=== PATIENT | female | born 1950 | race African-American/Black ===

== ENCOUNTER 2017-10-28 16:59 | Emergency (ER) | payer OTHER ==
[~2017-10-28] VITALS: Ht 167.6 cm; Wt 95.5 kg
[2017-10-28 17:14] VITALS: BP 203/98; PULSE 63; RESP 20; TEMP 100.2; O2SAT 98
[2017-10-28] MEDS ORDERED: CELE10TA PO (18:09)
[2017-10-28] MEDS ORDERED: ENAL5TAB PO (18:09)
[2017-10-28] MEDS ORDERED: ASPI-516 CHEW (18:09)
[2017-10-28] MEDS ORDERED: METO25TA3 PO (18:09)
[2017-10-28] MEDS ORDERED: HYDR12.57 PO (18:09)
[2017-10-28] MEDS ORDERED: FAMO1TAB30 PO (18:09)
[2017-10-28] MEDS ORDERED: HYDR-3801 PO (18:10)
[2017-10-28] MEDS ORDERED: VITA10002 PO (18:10)
[2017-10-28 18:13] VITALS: BP 185/93; PULSE 52; RESP 22; TEMP 99.2; O2SAT 100
[2017-10-28] MEDS ORDERED: LIPI40TA PO (18:14)
[2017-10-28] MEDS ORDERED: AMLO10 PO (18:14)
--- NOTE | 2017-10-28 19:20 | PD ---
HPI Chief Complaint: Injury Time Seen by Provider: 19:06 Travel History International Travel<30 days: No Contact w/Intl Traveler<30days: No Traveled to known affect area: No History of Present Illness HPI 67-year-old black female presents emergency department we will complaints of pain and swelling to her right index finger after clipping her cuticle 2 days ago. She states that it is extremely painful and swollen. She denies any other injury. No fever chills. No numbness, tingling or weakness. Symptoms are moderate. PFSH Past Medical History Narrative Medical Hypertension Tetanus Vaccination: Unknown Social History Alcohol Use: No Tobacco Use: No Allergies-Medications (Allergen,Severity, Reaction): Coded Allergies: ibuprofen (Verified Allergy, Severe, Nausea/Vomiting, 10/28/17) Reported Meds & Prescriptions Reported Meds & Active Scripts Active Reported Lipitor (Atorvastatin Calcium) 40 Mg Tab Unknown Dose PO DAILY Norvasc (Amlodipine Besylate) 10 Mg Tab 10 Mg PO DAILY Vitamin B-12 (Cyanocobalamin) 1,000 Mcg Tab Unknown Dose PO DAILY Hydralazine (Hydralazine HCl) 100 Mg Tab Unknown Dose PO BID Take with meals Celexa (Citalopram Hydrobromide) 10 Mg Tab Unknown Dose PO DAILY Aspirin 81 Mg Chew 162 Mg CHEW DAILY Famotidine 10 Mg Tab Unknown Dose PO DAILY Hydrochlorothiazide 12.5 Mg Cap Unknown Dose PO DAILY Metoprolol Tartrate 25 Mg Tab Unknown Dose PO BID Enalapril (Enalapril Maleate) 5 Mg Tab Unknown Dose PO DAILY Review of Systems General / Constitutional: No: Fever Eyes: No: Visual changes HENT: No: Headaches Cardiovascular: No: Chest Pain or Discomfort Respiratory: No: Shortness of Breath Gastrointestinal: No: Abdominal Pain Genitourinary: No: Dysuria Musculoskeletal: Positive: Limited ROM, Edema, Pain Skin: Positive Rash Neurologic: No: Weakness Psychiatric: No: Depression Endocrine: No: Polydipsia Hematologic/Lymphatic: No: Easy Bruising Physical Exam Narrative GENERAL: This is a well-nourished, well-developed patient, in no apparent distress. SKIN: No rashes, ecchymoses or lesions. Warm and dry. HEAD: Atraumatic. Normocephalic. EYES: PERRL, EOMI, no discharge or injection. No scleral icterus. EARS: Clear NOSE: Nasal turbinates appear normal. THROAT: Mucosa pink and moist. Airway patent. NECK: Trachea midline. supple, moves head freely. LUNGS: Clear to auscultation. CV: Regular in rhythm. ABDOMEN: Soft nontender. EXT: No clubbing cyanosis. Examination of the right index finger reveals swelling along the lateral aspect of the nailbed. It is tender, warm with mild erythema. There is an obvious paronychia. Data Data Last Documented VS Vital Signs Date Time Temp Pulse Resp B/P (MAP) Pulse Ox O2 Delivery O2 Flow Rate FiO2 10/28/17 18:13 99.2 52 22 185/93 (123) 100 Room Air MDM Medical Decision Making Medical Screen Exam Complete: Yes Emergency Medical Condition: Yes Medical Record Reviewed: Yes Differential Diagnosis MDM: High Differential diagnoses: Abscess, folliculitis, cellulitis, lymphangitis, abrasion, contact dermatitis, paronychia Narrative Course Patient has a paronychia of the right index finger. An incision and drainage has been performed. Procedures Procedure Narrative I&D abscess: After the risks and benefits were discussed the following procedure was performed. The skin is prepped and draped in the usual sterile fashion using Betadine. The abscess is anesthetized with 1% lidocaine and 0.5% Marcaine digital block. After adequate anesthesia, an 11 blade scalpel is used to make a 1 centimeter central incision. Perulant material is expressed . A clean dressing is applied. The patient tolerated the procedure well. There was no complications. Follow-up instructions were given to the patient. Diagnosis Primary Impression: Paronychia of right index finger Patient Instructions: General Instructions Additional Instructions: Rest. Elevation. keep clean and dry. Soak in Epsom salts twice daily. Daily wound care with soap, water and Neosporin. Three Advil every 6 hours. Bactrim DS. Follow-up with a primary care doctor in one week. Return to the ER for any problems. Med/Other Pt SpecificInfo: Prescription(s) given, Wound Care Disposition: 01 DISCHARGE HOME Condition: Stable Feliz Naranjo October 28, 2017 19:20
[2017-10-28] MEDS ORDERED: BACT800T5 PO (19:21)
== END 2017-10-28 19:29 | disposition home or self-care (01) ==
LOC: NEPD 16:59
DX: L03.011 Cellulitis of right finger (principal); I10 Essential (primary) hypertension
CPT/HCPCS: 10060